=== PATIENT | female | born 1960 | race Caucasian/White ===

== ENCOUNTER 2016-07-20 21:54 | Emergency (ER) | payer BC, OTHER ==
[2016-07-20 23:18] LABS: BASOPHILS % 0.6 (0.0-1.5); MEAN CORPUSCULAR HEMOGLOBIN 31.9 pg (28.0-34.0); MEAN CORPUSCULAR VOLUME 93.9 fl (80.0-100.0); MONOCYTES % 3.9 % (0.0-11.0); NEUTROPHILS # 5.6 # k/uL (1.4-7.7)
--- NOTE | 2016-07-20 23:28 | ED Physician Documentation ---
Female Urogenital Problems - HISTORIAN Historian: patient - HPI Stated Complaint: Has not felt well for 2 weeks, currently possible UTI Chief Complaint: Female Urogenital Problems Onset: hours Severity: moderate Further Comments: yes (56 year old male patient presents with dysuria, frequency and abdominal pain which started this afternoon. Patient denies fever or chills.) - Associated Symptoms Urinary Symptoms: frequent urination, discomfort w/ urination, burning w/ urination, pain w/ urination - ROS CONST: fever, chills GI/: denies: nausea, vomiting CVS/RESP: none EYES/ENT: none NEURO/PSYCH: none MS/SKIN/LYMPH: none - PAST HX Past History: denies: none Other History: diabetes Type 2, hypertension, other (CVA, hypothyroidism) Allergies/Adverse Reactions: Allergies Allergy/AdvReac Type Severity Reaction Status Date / Time Penicillins Allergy Intermediate Verified 07/20/16 22:38 atropine Allergy Verified 07/20/16 22:38 oxymetazoline HCl Allergy Verified 07/20/16 22:38 [From Tony-Synephrine (phenylephrine)] phenylephrine HCl Allergy Verified 07/20/16 22:38 [From Tony-Synephrine (phenylephrine)] Iodinated Contrast Media - AdvReac Tremors Verified 07/20/16 22:38 IV Dye Home Medications: Ambulatory Orders Medication Instructions Recorded Gabapentin 100 mg PO TID 05/09/12 Tamsulosin HCl [Flomax] 0.4 mg PO [id number] #6 cap.er.24h 07/20/16 - SOCIAL HX Smoking History: non-smoker - FAMILY HX Family History: none - VITAL SIGNS Vital Signs: Vital Signs Temp Pulse Resp BP Pulse Ox 98.3 F 94 H 20 163/110 98 07/20/16 21:55 07/20/16 21:55 07/20/16 21:55 07/20/16 21:55 07/20/16 21:55 - REVIEWED ASSESSMENTS Nursing Assessment Reviewed: Yes Vitals Reviewed: Yes Progress - Progress Progress: 2+ blood in urine, patient denies history of hematuria ED Results Lab/Radiology - Lab Results Lab Results: Lab Results 07/20/16 23:15 WBC 8.60 K/ul K/ul (4.00-12.00) RBC 5.16 M/ul M/ul (3.90-5.20) Hgb 16.4 g/dL H g/dL (12.0-16.0) Hct 48.5 % H % (34.5-46.5) MCV 93.9 fl fl (80.0-100.0) MCH 31.9 pg pg (28.0-34.0) MCHC 33.9 g/dL g/dL (30.0-36.0) RDW 13.7 % % (11.3-14.3) Plt Count 150 K/mm3 K/mm3 (130-400) Neut % (Auto) 65.1 % % (39.0-79.0) Lymph % (Auto) 27.1 % % (16.0-50.0) [place] % (Auto) 3.9 % % (0.0-11.0) Eos % (Auto) 2.0 % % (0.0-6.8) Baso % (Auto) 0.6 (0.0-1.5) Neut # 5.6 # k/uL # k/uL (1.4-7.7) Lymph # 2.3 # k/uL # k/uL (0.6-4.0) [place] # 0.3 # k/uL # k/uL (0.0-0.9) Eos # 0.2 # k/uL # k/uL (0.0-0.6) Baso # 0.0 # k/uL # k/uL (0.0-0.5) Reactive Lymphs % 1.3 % % (0.0-5.0) Reactive Lymphs # 0.1 # k/uL # k/uL (0.0-0.8) - Radiology Radiology Impressions: TECHNIQUE: 5 mm contiguous axial images of the abdomen and pelvis non contrast. FINDINGS: The lung bases are clear. Fatty changes present in the liver. The spleen and adrenal glands are unremarkable. The pancreas is unremarkable. There multiple gallstones. Bilateral renal perinephric stranding of uncertain etiology is present. There is no aneurysm or retroperitoneal mass. An umbilical hernia contains only fat. There is a normal appendix. Lumbar spondylosis is present. The uterus unremarkable. There is a left ureteral calculus measuring 2 mm of the left ureterovesical junction with no significant dilatation of the left ureter IMPRESSION: 2 mm calculus at the left ureterovesical junction The left renal collecting system and ureter are not dilated Cholelithiasis Fatty liver Nonspecific streaky perinephric fat Negative appendix - Orders Orders: ED Orders Category Date Time Status CT ABD & PELVIS W/O CON Stat Exams 07/20/16 Ordered CBC/PLATELET/DIFF Stat Lab 07/20/16 23:15 Completed CMP Stat Lab 07/20/16 23:15 Received UA W/MICRO IF INDICATED Stat Lab 07/20/16 22:03 Ordered Female Urogenital Problems - EXAM General Appearance: mild distress EENT: eye inspection normal, MILES Respiratory: no resp. distress, breath sounds nml CVS: reg rate & rhythm, heart sounds normal, equal pulses, no murmur, no gallop , PMI nml, no JVD, no friction rub, 24 Abdomen: soft, non-tender, no organomegaly, no distention, nml bowel sounds, tenderness (GENERALIZED). No: McBurney's point tender Skin: color nml, no rash, warm,dry, other (poor personal hygiene) Extremities: non-tender, normal range of motion, no evidence of injury, no edema , J, [employer]LECT[employer]ER Neuro: oriented X3, CN's nml as tested, motor nml, sensation nml, mood/affect nml Discharge Clincal Impression: Renal calculus, left Prescriptions: Tamsulosin HCl [Flomax] 0.4 mg PO [id number] #6 cap.er.24h Referrals: Armani Ovalles MD [STAFF PHYSICIAN] - 2 Days Additional Instructions: route delivery supervisor your prescription and start it TOMORROW. Increase your fluid intake to at least 64 oz of water a day Strain all urine. If the stone is passed, place it in a specimen cup and take it to your primary care physician for analysis. You may take tylenol or ibuprofen as needed for discomfort. See your primary care provider in 7-10 days to repeat your UA. Home Medications: Ambulatory Orders Gabapentin 100 mg PO TID 05/09/12 Tamsulosin HCl [Flomax] 0.4 mg PO [id number] #6 cap.er.24h 07/20/16 Condition: Stable Disposition: 01 HOME, SELF-CARE Decision to Admit: NO Decision Time: 00:05
[2016-07-20 23:39] LABS: eGFR (African) > 60; eGFR (Non-African) > 60
[2016-07-20] MEDS ORDERED: TAMSULOSIN HCL 0.4 MG CAP.ER.24H PO ONE (23:42)
[2016-07-20] MEDS ORDERED: KETOROLAC TROMETHAMINE 60 MG/2 ML VIAL IM ONE (23:42)
--- NOTE | 2016-07-20 23:44 | Diagnostic Imaging Report ---
KRISTYN MCDANIELS (PRINCE) - ER [facility] [address] [facility] [address] [place], [place]. [address] Report Submission Date: Jul 20, 2016 11:33:33 PM CDT Patient Study Name: ELADIA HUMPHREY Date: Jul 20, 2016 11:01:00 PM CDT Modality Type: CT\SR Gender: F Description: CT ABD & PELVIS W/O CO : 56 Institution: [facility] Physician: KRISTYN MCDANIELS (PRINCE) - ER CT abdomen and pelvis without contrast Date of study: 20 July 2016 CLINICAL HISTORY: HEMATURIA AND ABDOMINAL PAIN (Hx) / HEMATURIA, ABD PAIN ( DICOM Hx) TECHNIQUE: 5 mm contiguous axial images of the abdomen and pelvis non contrast. FINDINGS: The lung bases are clear. Fatty changes present in the liver. The spleen and adrenal glands are unremarkable. The pancreas is unremarkable. There multiple gallstones. Bilateral renal perinephric stranding of uncertain etiology is present. There is no aneurysm or retroperitoneal mass. An umbilical hernia contains only fat. There is a normal appendix. Lumbar spondylosis is present. The uterus unremarkable. There is a left ureteral calculus measuring 2 mm of the left ureterovesical junction with no significant dilatation of the left ureter IMPRESSION: 2 mm calculus at the left ureterovesical junction The left renal collecting system and ureter are not dilated Cholelithiasis Fatty liver Nonspecific streaky perinephric fat Negative appendix Electronically signed on Jul 20, 2016 11:33:33 PM CDT by: Vikram VANN
[2016-07-21 00:20] VITALS: BP 158/98
[2016-07-21 06:37] LABS: APPEARANCE,URINE CLEAR (CLEAR); COLOR,URINE YELLOW (YELLOW); OCCULT BLOOD,URINE 2+ (NEGATIVE); UROBILINOGEN URINE 0.2 Eu (0.2-1.0)
== END 2016-07-20 23:55 | disposition home or self-care (01) ==
LOC: ED 21:54
DX: N20.0 Calculus of kidney (principal)
CPT/HCPCS: 74176; 80053; 81002; 85025; 99283; J1885; S1016